=== PATIENT | female | born 1975 | race Caucasian/White ===

== ENCOUNTER → 2022-09-15 | Day surgery (SDC) | payer OTHER | END | disposition home or self-care (01) | LOC: JRADUS-SUR 08:43 | PROVIDERS: ATTEND Physician Assistant | PROC: 0H9T3ZX Drainage of Right Breast, Percutaneous Approach, Diagnostic (ICD-10-PCS; principal; 2022-09-15) | DX: C50.911 Malignant neoplasm of unspecified site of right female breast (principal); Z17.0 Estrogen receptor positive status [ER+] | CPT/HCPCS: 19083; 77065-TC; 87899; 88305-TC; 88342-TC; A4648 ==

== ENCOUNTER 2022-11-30 04:00 | Day surgery (SDC) | payer OTHER ==
[~2022-11-30 04:00] MED LIST: LIDOCAINE HCL 1%, 10 MG/ML (20ML VIAL) NR ONE
[2022-11-30 08:28] VITALS: BMI 20.5
[2022-11-30] MEDS ORDERED: METHYLENE BLUE 50 MG/10 ML AMPUL ONE (09:35)
[2022-11-30] MEDS ORDERED: LIDOCAINE HCL 1%, 10 MG/ML (20ML VIAL) ONE ×2 (09:36→15:43)
[2022-11-30] MEDS ORDERED: PROPOFOL 20 ML ONE (10:48)
[2022-11-30] MEDS ORDERED: MIDAZOLAM HCL 2 MG/2 ML SINGLE DOSE VIAL ONE (10:48)
[2022-11-30] MEDS ORDERED: ceFAZolin SODIUM 1 GM VIAL ONE (10:48)
[2022-11-30] MEDS ORDERED: LIDOCAINE HCL/PF 2% SDV 5ML VIAL ONE (10:48)
[2022-11-30] MEDS ORDERED: ceFAZolin SODIUM 1 GM VIAL IVPB ONE (11:30)
[2022-11-30] MEDS ORDERED: DEXAMETHASONE SOD PHOSPHATE 4 MG/1 ML VIAL ONE (11:38)
[2022-11-30] MEDS ORDERED: ONDANSETRON 4 MG/2 ML VIAL ONE ×2 (11:38→13:38)
[2022-11-30] MEDS ORDERED: LIDOCAINE HCL 1%, 10 MG/ML (20ML VIAL) NR ONE (11:48)
[2022-11-30] MEDS ORDERED: oxyCODONE HCL 5 MG TABLET PO PRN (12:54)
[2022-11-30] MEDS ORDERED: ONDANSETRON 4 MG/2 ML VIAL IVPUSH PRN (12:54)
[2022-11-30] MEDS ORDERED: IBUPROFEN 800 MG/8 ML IJ IVPB PRN (12:54)
[2022-11-30] MEDS ORDERED: LACTATED RINGERS SOLUTION 1,000 ML IV SCH (13:00)
[2022-11-30] MEDS ORDERED: IBUPROFEN 800 MG/8 ML IJ IVPB ONE (13:13)
[2022-11-30 15:03] VITALS: RESP 16
[2022-11-30 17:06] VITALS: BP 154/67; PULSE 70; TEMP 98
== END 2022-11-30 17:07 | disposition home or self-care (01) ==
LOC: JASU-SURG 04:00
PROVIDERS: ATTEND Surgery
PROC: C71L1ZZ Planar Nuclear Medicine Imaging of Upper Chest Lymphatics using Technetium 99m (Tc-99m) (ICD-10-PCS; 2022-11-30)
PROC: 0HBT0ZZ Excision of Right Breast, Open Approach (ICD-10-PCS; principal; 2022-11-30 10:30)
PROC: 07B50ZX Excision of Right Axillary Lymphatic, Open Approach, Diagnostic (ICD-10-PCS; 2022-11-30 10:30)
DX: C50.911 Malignant neoplasm of unspecified site of right female breast (principal)
CPT/HCPCS: 78195-TC; 81025; 88307-TC; 94760; A9541; Q9968

== ENCOUNTER 2022-12-27 05:18 | Day surgery (SDC) | payer OTHER ==
[2022-12-23 11:16] VITALS: BMI 22.3
[2022-12-27 09:23] LABS: EPI CELLS >36 /uL (0-25.1); HYALINE CASTS 3 /uL (0-3.1); URINE APPEARANCE CLOUDY; URINE BACTERIA 113 /uL (0-1359); URINE BILIRUBIN NEGATIVE (NEGATIVE); URINE COLOR YELLOW; URINE GLUCOSE (UA) NEGATIVE (NEGATIVE); URINE KETONE NEGATIVE (NEGATIVE); URINE LEUK ESTERASE NEGATIVE (NEGATIVE); URINE NITRITE NEGATIVE (NEGATIVE); URINE PROTEIN NEGATIVE (NEGATIVE); URINE UROBILINOGEN 0.2 mg/dL (0.2-1.0); URINE WBC 7 /uL (0-25.8)
[2022-12-27] MEDS ORDERED: oxyCODONE HCL 5 MG TABLET PO PRN (09:40)
[2022-12-27] MEDS ORDERED: IBUPROFEN 400 MG TABLET (FP) PO PRN (09:40)
[2022-12-27] MEDS ORDERED: ACETAMINOPHEN 325 MG TABLET (FP) PO PRN (09:40)
[2022-12-27 10:23] LABS: URINE RBC 34 /uL (0-23.9)
[2022-12-27] MEDS ORDERED: BUPIVACAINE HCL/PF 0.5% (5MG/ML) 10 ML VIAL ONE (10:24)
[2022-12-27] MEDS ORDERED: LIDOCAINE HCL 1%, 10 MG/ML (10ML VIAL) MDV ONE (10:24)
[2022-12-27] MEDS ORDERED: MIDAZOLAM HCL 2 MG/2 ML SINGLE DOSE VIAL ONE (10:40)
[2022-12-27] MEDS ORDERED: PROPOFOL 20 ML ONE (10:50)
[2022-12-27] MEDS ORDERED: ceFAZolin SODIUM 1 GM VIAL ONE (10:50)
[2022-12-27] MEDS ORDERED: ONDANSETRON 4 MG/2 ML VIAL ONE ×2 (10:50→13:33)
[2022-12-27] MEDS ORDERED: LIDOCAINE HCL/PF 2% SDV 5ML VIAL ONE (10:50)
[2022-12-27] MEDS ORDERED: DEXAMETHASONE SOD PHOSPHATE 4 MG/1 ML VIAL ONE (10:50)
[2022-12-27] MEDS ORDERED: LIDOCAINE HCL 2% 100 MG/5 ML DISP.SYRIN ONE (10:50)
[2022-12-27] MEDS ORDERED: ROCURONIUM BROMIDE 50 MG/5 ML SYRINGE ONE (10:54)
[2022-12-27] MEDS ORDERED: ceFAZolin SODIUM 1 GM VIAL IVPB ONE (10:55)
[2022-12-27] MEDS ORDERED: SEVOFLURANE 250 ML BTL ONE (11:05)
[2022-12-27] MEDS ORDERED: ACETAMINOPHEN INJECTION 100 ML IVPB ONE (11:05)
[2022-12-27] MEDS ORDERED: KETOROLAC TROMETHAMINE 30 MG/1 ML VIAL ONE (11:12)
[2022-12-27] MEDS ORDERED: LIDOCAINE HCL 1%, 10 MG/ML (20ML VIAL) NR ONE ×2 (11:17)
[2022-12-27] MEDS ORDERED: ONDANSETRON 4 MG/2 ML VIAL IVPUSH PRN (11:46)
[2022-12-27] MEDS ORDERED: PROMETHAZINE HCL 25 MG/1 ML VIAL IVPB PRN (11:46)
[2022-12-27] MEDS ORDERED: LACTATED RINGERS SOLUTION 1,000 ML IV SCH (12:00)
[2022-12-27] MEDS ORDERED: NEOSTIGMINE METHYLSULFATE 0.5 MG/1 ML - 10 ML MDV ONE (12:18)
[2022-12-27] MEDS ORDERED: GLYCOPYRROLATE 0.2 MG/1 ML VIAL ONE (12:18)
[2022-12-27] MEDS ORDERED: BUPIVACAINE HCL/PF 0.5% (5MG/ML) 10 ML VIAL IJ ONE (12:19)
[2022-12-27 14:51] VITALS: RESP 20; TEMP 97.5
[2022-12-27 18:20] VITALS: BP 117/78; PULSE 60
== END 2022-12-27 17:45 | disposition home or self-care (01) ==
LOC: JASU-SURG 05:18
PROVIDERS: ATTEND Obstetrics & Gynecology
PROC: 0HBT0ZZ Excision of Right Breast, Open Approach (ICD-10-PCS; principal; 2022-12-27 10:00)
PROC: 0HBT0ZZ Excision of Right Breast, Open Approach (ICD-10-PCS; 2022-12-27 10:00)
PROC: 0UT74ZZ Resection of Bilateral Fallopian Tubes, Percutaneous Endoscopic Approach (ICD-10-PCS; 2022-12-27 10:00)
DX: C50.911 Malignant neoplasm of unspecified site of right female breast (principal); N70.11 Chronic salpingitis; N83.8 Other noninflammatory disorders of ovary, fallopian tube and broad ligament; Z30.2 Encounter for sterilization
CPT/HCPCS: 81003; 81025; 86850; 86900; 86901; 88302-TC; 88307-TC; 88342-TC; 94760

== ENCOUNTER 2023-03-07 05:41 | Day surgery (SDC) | payer OTHER ==
[2023-03-03 12:40] VITALS: BMI 21.2
[2023-03-07] MEDS ORDERED: PROPOFOL 20 ML ONE (11:08)
[2023-03-07] MEDS ORDERED: ROCURONIUM BROMIDE 50 MG/5 ML SYRINGE ONE (11:08)
[2023-03-07] MEDS ORDERED: ceFAZolin SODIUM 1 GM VIAL IVPB ONE (11:21)
[2023-03-07] MEDS ORDERED: ACETAMINOPHEN 500 MG TABLET (FP) PO PRN (12:33)
[2023-03-07] MEDS ORDERED: ALPRAZolam 1 MG TABLET PO ONE (12:33)
[2023-03-07] MEDS ORDERED: HYDROmorphone *PCA* 10MG/50ML DISP.SYRIN PCA SCH (12:45)
[2023-03-07] MEDS ORDERED: LACTATED RINGERS SOLUTION 1,000 ML/1,000 ML INFUS.BAG IV SCH (12:45)
[2023-03-07] MEDS ORDERED: GLYCOPYRROLATE 0.2 MG/1 ML VIAL ONE (13:18)
[2023-03-07] MEDS ORDERED: NEOSTIGMINE METHYLSULFATE 0.5 MG/1 ML - 10 ML MDV ONE (13:18)
[2023-03-07] MEDS ORDERED: NITROGLYCERIN 2% OINTMENT - 1GM PACKET TD ONE ×2 (13:25→13:34)
[2023-03-07] MEDS ORDERED: ceFAZolin SODIUM 1 GM VIAL ONE ×2 (13:37)
[2023-03-07] MEDS ORDERED: ONDANSETRON 4 MG/2 ML VIAL IVPUSH PRN (13:55)
[2023-03-07] MEDS ORDERED: oxyCODONE HCL 5 MG TABLET PO PRN (13:55)
[2023-03-07] MEDS: HYDROmorphone *PCA* 10MG/50ML DISP.SYRIN PCA SCH ×2 (14:12→21:58)
[2023-03-07] MEDS ORDERED: ONDANSETRON 4 MG/2 ML VIAL ONE (15:14)
[2023-03-07] MEDS: LACTATED RINGERS SOLUTION 1,000 ML IV SCH (16:00)
[2023-03-07] MEDS: CEFAZOLIN 1 GM in DEXTROSE 5%-WATER - 50 ML IVPB SCH (21:45)
[2023-03-07] MEDS: NITROGLYCERIN 2% OINTMENT - 1GM PACKET TD SCH (23:57)
[2023-03-08] MEDS: LACTATED RINGERS SOLUTION 1,000 ML IV SCH ×2 (03:15→15:17)
[2023-03-08] MEDS: CEFAZOLIN 1 GM in DEXTROSE 5%-WATER - 50 ML IVPB SCH ×2 (07:15→13:20)
[2023-03-08] MEDS: NITROGLYCERIN 2% OINTMENT - 1GM PACKET TD SCH ×2 (07:15→14:15)
[2023-03-08] MEDS ORDERED: oxyCODONE HCL 5 MG TABLET PO PRN ×2 (09:26→09:28)
[2023-03-08] MEDS ORDERED: IBUPROFEN 600 MG TABLET (FP) PO PRN (09:30)
[2023-03-08] MEDS ORDERED: DOCUSATE SODIUM 100 MG CAPSULE (FP) PO SCH (10:00)
[2023-03-08 14:15] VITALS: PULSE 85; RESP 20; TEMP 98.2
[2023-03-08 16:32] VITALS: BP 97/56
== END 2023-03-08 18:33 | disposition home or self-care (01) ==
LOC: JASUSAT 05:41 → J7W 17:45 → JASUSAT 03-08 18:33
PROVIDERS: ATTEND Surgery
PROC: 0HTT0ZZ Resection of Right Breast, Open Approach (ICD-10-PCS; principal; 2023-03-07 10:00)
PROC: 0HHT0NZ Insertion of Tissue Expander into Right Breast, Open Approach (ICD-10-PCS; 2023-03-07 10:00)
DX: C50.911 Malignant neoplasm of unspecified site of right female breast (principal)
CPT/HCPCS: 81025; 88309-TC; 88342-TC; 94010; 94760; C1789; Q4116

== ENCOUNTER 2024-03-05 04:15 | Day surgery (SDC) | payer OTHER ==
[2024-02-24 15:08] VITALS: BMI 22.4
[2024-03-05] MEDS ORDERED: PROPOFOL 20 ML ONE (10:48)
[2024-03-05] MEDS ORDERED: LIDOCAINE HCL/PF 2% SDV 5ML VIAL ONE (11:46)
[2024-03-05] MEDS ORDERED: FENTANYL CITRATE/PF 50 MCG/ML VIAL ONE ×6 (11:46→15:15)
[2024-03-05] MEDS ORDERED: MIDAZOLAM HCL 2 MG/2 ML SINGLE DOSE VIAL ONE (11:46)
[2024-03-05] MEDS ORDERED: ONDANSETRON 4 MG/2 ML VIAL ONE (12:13)
[2024-03-05] MEDS ORDERED: DEXAMETHASONE SOD PHOSPHATE 4 MG/1 ML VIAL ONE (12:13)
[2024-03-05] MEDS ORDERED: ceFAZolin SODIUM 1 GM VIAL ONE (12:20)
[2024-03-05] MEDS ORDERED: ONDANSETRON 4 MG/2 ML VIAL IVPUSH PRN (13:43)
[2024-03-05] MEDS: LACTATED RINGERS SOLUTION 1,000 ML IV SCH (13:45)
[2024-03-05] MEDS: ACETAMINOPHEN 1000 MG/100 ML BAG IVPB ONE ×2 (13:47→16:11)
[2024-03-05 16:21] VITALS: RESP 16
[2024-03-05] MEDS ORDERED: oxyCODONE HCL 5 MG TABLET ONE (16:58)
[2024-03-05] MEDS: oxyCODONE HCL 5 MG TABLET PO PRN (17:02)
[2024-03-05 17:22] VITALS: BP 98/60; PULSE 66; TEMP 97.5
== END 2024-03-05 18:05 | disposition home or self-care (01) ==
LOC: JASU-SURG 04:15
PROVIDERS: ATTEND Plastic Surgery
PROC: 0H0U0JZ Alteration of Left Breast with Synthetic Substitute, Open Approach (ICD-10-PCS; principal; 2024-03-05 12:24)
DX: Z85.3 Personal history of malignant neoplasm of breast (principal); N65.1 Disproportion of reconstructed breast
CPT/HCPCS: 19325; L8600; 81025; 94760; J0131